=== PATIENT | male | born 1965 | race Caucasian/White ===

== ENCOUNTER 2023-10-04 17:15 | Inpatient (IN) | payer SELFPAY ==
[2023-10-04 18:21] LABS: #Eosinphils 0.3 thou/uL (0.0-0.7); #Monocytes 0.7 thou/uL (0.11-0.59); #Neutrophils 4.8 thou/uL (1.40-6.50); %Basophils 0.5 % (0.0-1.0); %Eosinophils 3.7 % (0.0-10.0); %Monocytes 7.9 % (0.0-10.0); %Neutrophils 57.7 % (42.0-75.0); Hematocrit 39.9 % (42.0-52.0); Hemoglobin 13.8 g/dL (14.0-18.0); Mean Corpuscular HGB CONC 34.6 g/dL (32.0-36.0); Mean Corpuscular Hemoglobin 32.9 pg (27.0-31.0); Mean Platelet Volume 9.4 fL (7.4-10.4); Platelet Count 311 10x3/uL (130-400); RBC Distribution Width 13.1 % (11.5-14.5); White Blood Cell (WBC) Count 8.3 10x3/uL (4.8-10.8)
[2023-10-04 18:46] LABS: ALT (SGPT) 9 U/L (8-55); AST (SGOT) 15 U/L (5-34); Alkaline Phosphatase 72 U/L (40-110); Anion Gap 12 mmol/L (10-20); BUN (Urea Nitrogen) 9 mg/dL (8.4-25.7); Bilirubin, Total 0.4 mg/dL (0.2-1.2); Calc. Creatinine Clearance 0 mL/min (70-130); Calcium 9.1 mg/dL (7.8-10.44); Carbon Dioxide 27 mmol/L (22-29); Chloride 104 mmol/L (98-107); Estimated GFR 100; Globulin 3.4 g/dL (2.4-3.5); Glucose 96 mg/dL (70-105); Potassium 3.9 mmol/L (3.5-5.1); Protein, Total 7.4 g/dL (6.0-8.3); Sodium 139 mmol/L (136-145)
[2023-10-04] MEDS ORDERED: Aspirin Chewable 81 MG TAB ONE (20:57)
[2023-10-04] MEDS ORDERED: predniSONE 20 MG TAB ONE (20:57)
[2023-10-04] MEDS ORDERED: Senokot S 8.6-50 MG TAB PO PRN (21:05)
[2023-10-04] MEDS ORDERED: Polyvinyl Alcohol 1.4%/Povidone 0.6% Opth Drops L EYE PRN (23:33)
[2023-10-05 04:27] LABS: #Monocytes 0.1 thou/uL (0.11-0.59); #Neutrophils 7.5 thou/uL (1.40-6.50); %Basophils 0.3 % (0.0-1.0); %Eosinophils 0.1 % (0.0-10.0); %Lymphocytes 11.7 % (21.0-51.0); %Monocytes 1.5 % (0.0-10.0); %Neutrophils 86.2 % (42.0-75.0); Hematocrit 42.1 % (42.0-52.0); Hemoglobin 14.5 g/dL (14.0-18.0); Mean Corpuscular HGB CONC 34.4 g/dL (32.0-36.0); Mean Corpuscular Hemoglobin 32.6 pg (27.0-31.0); Mean Corpuscular Volume 94.6 fl (78.0-98.0); Mean Platelet Volume 9.4 fL (7.4-10.4); Platelet Count 329 10x3/uL (130-400); RBC Distribution Width 12.9 % (11.5-14.5); Red Blood Cell (RBC) Count 4.45 mill/uL (4.70-6.10); White Blood Cell (WBC) Count 8.7 10x3/uL (4.8-10.8)
[2023-10-05 05:16] LABS: Anion Gap 15 mmol/L (10-20); BUN (Urea Nitrogen) 9 mg/dL (8.4-25.7); Calc. Creatinine Clearance 102 mL/min (70-130); Calcium 8.9 mg/dL (7.8-10.44); Carbon Dioxide 23 mmol/L (22-29); Cardiac Risk 4.3 (Less than 4.5); Chloride 105 mmol/L (98-107); Cholesterol 178 mg/dl (< 200 Desired); Estimated GFR 100; Glucose 128 mg/dL (70-105); HDL Cholesterol 41 mg/dL (>60 Neg Risk); LDL Cholesterol, Calculated 130 mg/dL; Potassium 3.9 mmol/L (3.5-5.1); Sodium 139 mmol/L (136-145); Triglycerides 36 mg/dL (Less than 150)
[2023-10-05] MEDS ORDERED: predniSONE 20 MG TAB ONE (09:34)
[2023-10-05] MEDS ORDERED: Famotidine 20 MG TAB ONE (09:35)
[2023-10-05] MEDS ORDERED: Enoxaparin 40 MG (0.4 mL) SYRINGE ONE (09:35)
[2023-10-05] MEDS ORDERED: Aspirin 325 MG TAB ONE (09:35)
[2023-10-05] MEDS ORDERED: Acetaminophen 325 MG TAB ONE (09:55)
[2023-10-05] MEDS: predniSONE 20 MG TAB PO SCH (10:11)
[2023-10-05] MEDS: Acetaminophen 325 MG TAB PO PRN (10:11)
[2023-10-05] MEDS: Aspirin 325 mg Enteric Coated Tablet PO SCH (10:12)
[2023-10-05] MEDS: Enoxaparin 40 MG (0.4 mL) SYRINGE SC SCH (10:12)
[2023-10-05] MEDS: Famotidine 20 MG TAB PO SCH ×2 (10:12→21:15)
[2023-10-05] MEDS ORDERED: Senokot S 8.6-50 MG TAB PO PRN (12:45)
[2023-10-05] MEDS: valACYclovir 500 MG TAB PO SCH ×2 (13:14→21:14)
[2023-10-05 15:29] VITALS: BMI 22.6
[2023-10-05] MEDS ORDERED: Atorvastatin Calcium 20 MG TAB PO SCH (21:00)
[2023-10-06] MEDS: valACYclovir 500 MG TAB PO SCH (10:27)
[2023-10-06] MEDS: Famotidine 20 MG TAB PO SCH (10:27)
[2023-10-06] MEDS: predniSONE 20 MG TAB PO SCH (10:27)
[2023-10-06] MEDS: Aspirin 325 mg Enteric Coated Tablet PO SCH (10:27)
[2023-10-06] MEDS: Acetaminophen 325 MG TAB PO PRN (10:27)
[2023-10-06] MEDS: Enoxaparin 40 MG (0.4 mL) SYRINGE SC SCH (10:28)
[2023-10-06 16:19] VITALS: BP 120/93; TEMP 97.6
== END 2023-10-06 17:00 | disposition home or self-care (01) | DRG 74 ==
LOC: ERS 17:15 → ERHOLD 19:52 → 2SE 10-05 14:58 → OBSVTOIN 10-06 08:27
PROVIDERS: ADMIT Student in an Organized Health Care Education/Training Program; ATTEND Family Medicine
DX: G51.0 Bell's palsy (principal); E78.00 Pure hypercholesterolemia, unspecified; F32.A Depression, unspecified; F17.210 Nicotine dependence, cigarettes, uncomplicated; M48.02 Spinal stenosis, cervical region; E78.5 Hyperlipidemia, unspecified; B00.9 Herpesviral infection, unspecified; Z79.899 Other long term (current) drug therapy
CPT/HCPCS: 36415; 70450; 70551; 72141; 80048; 80053; 80061; 84443; 85025; 93005; 93306; 93880; 96372; G0378; J1650; J7512